=== PATIENT | male | born 1990 | race African-American/Black ===

== ENCOUNTER 2016-11-02 14:00 | Emergency (ER) | payer OTHER ==
[~2016-11-02] VITALS: Ht 182.9 cm; Wt 89.8 kg
--- NOTE | 2016-11-02 14:03 | NUR ---
CALLED PT, NOT AVAILABLE IN WAITING ROOM
--- NOTE | 2016-11-02 14:48 | NUR ---
pt very agitated, yelling and cursing, had to call for mannie diaz, t bedside trying to calm the pt down
--- NOTE | 2016-11-02 15:01 | NUR ---
code diaz cleared. pt calm, er t bedside.
[2016-11-02] MEDS ORDERED: KETOROLAC TROMETHAMINE 60 MG INJ IM ONE ×2 (15:30→15:39)
[2016-11-02] MEDS ORDERED: MISCELLANEOUS MED IM ONE (15:45)
[2016-11-02] MEDS ORDERED: PENICILLIN G BENZATHINE 2.4 MMU/4 ML DISP.SYRIN IM ONE (15:53)
--- NOTE | 2016-11-02 16:33 | NUR ---
Patient discharged to home in stable conditon. Written and verbal after care instructions given. Patient verbalizes understanding of instructions.PT ACCOMPANIED BY . Addendum: 11/02/16 at 1644 by RANCHO PT CALM AND COMFORTABLE. ASKED THE PT IF SHE FEELS SAFE WITH THE PT, CONCERNED ABOUT THE PT AGITATION EARLIER TODAY IN ER. PT SMILED AND SAID THAT " HE IS FINE AND HE WOULD DO NO HARM, " SHE SAID SHE FEELS SAFE WITH HIM AT HOME.
[2016-11-02 16:48] VITALS: BP 111/51
== END 2016-11-02 16:49 | disposition home or self-care (01) ==
LOC: ER 14:00
DX: S02.5XXA Fracture of tooth (traumatic), initial encounter for closed fracture (principal); S39.012A Strain of muscle, fascia and tendon of lower back, initial encounter; S60.212A Contusion of left wrist, initial encounter; F17.200 Nicotine dependence, unspecified, uncomplicated; Z86.73 Personal history of transient ischemic attack (TIA), and cerebral infarction without residual deficits; Z90.49 Acquired absence of other specified parts of digestive tract; Y08.89XA Assault by other specified means, initial encounter; Y93.89 Activity, other specified; Y92.9 Unspecified place or not applicable; Y99.9 Unspecified external cause status
CPT/HCPCS: 73120; A4663; J1885